=== PATIENT | male | born 1975 | race Caucasian/White ===

== ENCOUNTER 2023-06-08 15:46 | Outpatient (OUT) | payer OTHER, SELFPAY ==
[2023-06-08 16:18] LABS: Basophils Percent Auto 0.8 % (0.2-2.0); Eosinophils Absolute Auto 0.2 10^3/uL (0.0-0.7); Eosinophils Percent Auto 6.4 % (0.9-7.0); Hematocrit 38.9 % (42.0-54.0); Hemoglobin 13.2 g/dL (14.0-18.0); Lymphocytes Percent Auto 27.6 % (20.5-60.0); Mean Corpuscular HGB Conc 33.9 g/dL (29.9-35.2); Mean Corpuscular Hemoglobin 30.8 pg (25.9-34.0); Mean Corpuscular Volume 90.9 fL (80.0-94.0); Mean Platelet Volume 10.2 fL (9.5-13.5); Monocytes Absolute Auto 0.5 10^3/uL (0.3-0.8); Monocytes Percent Auto 14.2 % (1.7-12.0); Neutrophils Absolute Auto 1.9 10^3/uL (1.4-6.5); Platelet Count 101 10^3/uL (150-450); Red Blood Count 4.28 10^6/uL (4.70-6.10); Red Cell Distribution Width 14.1 % (11.0-15.0); White Blood Count 3.7 10^3/uL (4.0-11.0)
[2023-06-08 16:52] LABS: Ammonia 73 umol/L (11-32)
[2023-06-08 17:08] LABS: Alanine Aminotransferase 25 U/L (16-63); Albumin Globulin Ratio 0.8; Albumin Level 2.9 g/dL (3.4-5.0); Alkaline Phosphatase 88 U/L (46-116); Anion Gap 10.1; Aspartate Amino Transferase 31 U/L (15-37); BUN Creatinine Ratio 13.3; Bilirubin Total 0.8 mg/dL (0.2-1.0); Calcium 8.9 mg/dL (8.5-10.1); Carbon Dioxide 28.2 mmol/L (21.0-32.0); Chloride 106 mmol/L (98-107); Estimated GFR (African America >60 (>=60); Estimated GFR (Non-African Ame >60 (>=60); Globulin 3.6 g/dL; Glucose 76 mg/dL (74-106); Potassium 4.3 mmol/L (3.5-5.1); Sodium 140 mmol/L (136-145); Total Protein 6.5 g/dL (6.4-8.2)
== END 2023-06-08 15:47 | disposition home or self-care (01) ==
LOC: LAB 15:49
DX: F11.20 Opioid dependence, uncomplicated (principal); F10.20 Alcohol dependence, uncomplicated; F15.20 Other stimulant dependence, uncomplicated
CPT/HCPCS: 36415; 80053; 82140; 85025

== ENCOUNTER 2023-06-13 10:08 | Outpatient (OUT) | payer OTHER, SELFPAY ==
[2023-06-13 10:55] LABS: Ammonia 77 umol/L (11-32)
== END 2023-06-13 10:09 | disposition home or self-care (01) ==
LOC: LAB 10:10
DX: F10.20 Alcohol dependence, uncomplicated (principal)
CPT/HCPCS: 36415; 82140

== ENCOUNTER 2023-06-26 09:55 | Outpatient (OUT) | payer OTHER, SELFPAY ==
[2023-06-26 11:02] LABS: Ammonia 59 umol/L (11-32)
== END 2023-06-26 09:56 | disposition home or self-care (01) ==
LOC: LAB 09:56
DX: F10.20 Alcohol dependence, uncomplicated (principal)
CPT/HCPCS: 36415; 82140